=== PATIENT | male | born 1990 | race Caucasian/White ===

== ENCOUNTER 2016-06-13 15:24 | Outpatient (CLI) | payer OTHER ==
--- NOTE | 2016-06-13 16:02 | DIAGNOSTIC IMAGING REPORT ---
PROCEDURE: XR HIP 2VW W W/O AP PELVIS-LT INDICATION: L HIP JOINT PAIN TECHNIQUE: AP view of the pelvis and hips with lateral view of the left hip. COMPARISON: None. FINDINGS: LEFT HIP: No fracture or dislocation. Normal joint space. PELVIS: No suspicious osseous lesions. Soft tissues are unremarkable. IMPRESSION: 1. Negative pelvis and left hip.
== END 2016-06-13 23:00 ==
LOC: XR SRH 15:24
DX: M25.552 Pain in left hip (principal)